=== PATIENT | female | born 1995 | race Caucasian/White ===

== ENCOUNTER 2017-06-01 20:19 | Emergency (ER) | payer OTHER ==
[2017-06-01 20:27] VITALS: BP 151/102; PULSE 114; O2SAT 96
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
[2017-06-01 21:11] LABS: Bilirubin NEGATIVE (NEGATIVE); Blood NEGATIVE Ery/ul (0-5); Collection Type CLEAN CATCH; Glucose NEGATIVE (NEGATIVE); Leukocyte Esterase TRACE (NEGATIVE)
[2017-06-01 21:12] LABS: ADD URINE CULTURE? YES (NO); Bacteria MODERATE /HPF (NEGATIVE); COMPLETE URINE MICROSCOPIC? YES; Epithelial Cells MODERATE /HPF (FEW); Mucus SLIGHT /HPF (NEGATIVE)
[2017-06-01] MEDS ORDERED: Cyclobenzaprine 10 MG PO ONE (21:56)
[2017-06-01] MEDS ORDERED: Naprosyn 500 MG PO ONE (21:57)
[2017-06-01] MEDS ORDERED: Cyclobenzaprine 10 MG ONE (22:04)
--- NOTE | 2017-06-03 14:58 | XRAY ---
Indication: Low back pain extending into both hips. No known injury. Comparison: None 3 views of the lumbar spine demonstrates 5 lumbar vertebral segments in normal alignment. No bony, articular, or soft tissue abnormalities.
== END 2017-06-01 22:22 | disposition home or self-care (01) ==
LOC: ED 20:19
DX: M54.5 Low back pain (principal); S39.012A Strain of muscle, fascia and tendon of lower back, initial encounter; X50.0XXA Overexertion from strenuous movement or load, initial encounter; Y93.E2 Activity, laundry
CPT/HCPCS: 72100; 81000; 84703; 87086; 99284; A9270-GY

== ENCOUNTER 2017-06-18 18:40 | Emergency (ER) | payer OTHER ==
[2017-06-18] MEDS ORDERED: DUONEB 0.5-3 MG/3 ml Neb IH ONE ×2 (19:07→19:16)
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
[2017-06-18 19:51] VITALS: BP 145/87; PULSE 96; O2SAT 98
--- NOTE | 2017-06-19 08:29 | XRAY ---
Indication: Fever and cough. Comparison: None PA/lateral chest demonstrates normal heart, lungs, and bony thorax.
== END 2017-06-18 19:51 | disposition home or self-care (01) ==
LOC: ED 18:40
DX: J45.909 Unspecified asthma, uncomplicated (principal)
CPT/HCPCS: 71020; 87070; 87430; 94150; 94640; 99283; 99284; A9270-GY

== ENCOUNTER 2017-06-19 01:58 | Emergency (ER) | payer OTHER ==
[2017-06-19] MEDS ORDERED: Unasyn 3GM / NaCl 100ML 3 GM/100 ML IVPB IV STA (02:25)
[2017-06-19] MEDS ORDERED: DECADRON 10MG INJ. IV ONE (02:27)
[2017-06-19] MEDS ORDERED: Tylenol #3 Tablet PO ONE (02:33)
[2017-06-19 02:44] LABS: Lactic Acid 2.5 (0.4-2.0)
[2017-06-19] MEDS ORDERED: Tylenol #3 Tablet ONE (02:48)
[2017-06-19] MEDS ORDERED: Sodium Chloride 0.9% 1000 ML 1,000 ML ONE ×2 (02:48→04:12)
[2017-06-19] MEDS ORDERED: DECADRON 10MG INJ. ONE (02:48)
[2017-06-19] MEDS ORDERED: Unasyn 3GM / NaCl 100ML 3 GM/100 ML IVPB ONE (02:49)
[2017-06-19 02:52] LABS: BASOPHIL % 0.2 % (0.0-0.4); Granulocytes % 77.7 % (36.0-66.0); Lymphocytes % 14.6 % (24.0-44.0); Mean Corpuscular Hemoglobin 25.7 pg (26-32); Mean Platelet Volume 10.7 fl (6-9.5); Monocytes % 6.5 % (0.0-12.0); Platelet Count 259 K/mm3 (150-450); Red Blood Count 4.91 M/mm3 (4.1-5.4); White Blood Count 13.5 K/mm3 (4.0-10.5)
[2017-06-19] MEDS: Sodium Chloride 0.9% 1000 ML 1,000 ML IV SCH ×2 (02:52→04:23)
[2017-06-19] MEDS ORDERED: Sodium Chloride 0.9% 1000 ML 1,000 ML IV STA (04:02)
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
[2017-06-19 05:10] LABS: Lactic Acid 2.3 (0.4-2.0)
[2017-06-19 05:11] VITALS: BP 128/86; PULSE 89
[2017-06-19 05:13] VITALS: O2SAT 99
--- NOTE | 2017-06-19 08:33 | XRAY ---
Indication: Difficulty breathing and fever. Enlarged tonsils. Multiple contiguous axial images obtained through the neck using 80 cc Isovue 370 contrast. Comparison: None [place] tonsils and adenoids appear moderately enlarged narrowing the oropharynx. Normal epiglottis. Scattered centimeter and subcentimeter cervical lymph nodes bilaterally presumed reactive. Parotid and submandibular glands are bilaterally symmetric. Thyroid gland prominent and enhances homogeneously. Major arteries and veins are normal in course and caliber. Underlying cervical spine intact. Base of the brain and lung apices are unremarkable. Mild mucosal thickening of both maxillary and ethmoid sinuses without fluid leveling. Impression: 1. Enlarged tonsils and adenoids. 2. Probable reactive cervical lymph nodes. 3. Prominent thyroid gland without focal nodule/cyst. 4. Paranasal sinus disease. Comment: Preliminary interpretation was made by [facility]. No critical discrepancy. CT DI 20.81
== END 2017-06-19 05:27 | disposition home or self-care (01) ==
LOC: ED 01:58
DX: J03.90 Acute tonsillitis, unspecified (principal)
CPT/HCPCS: 36000; 36415; 70491; 80307; 83605; 84703; 85025; 86308; 94150; 96360; 96361; 96365; 96374; 99284; J0295; J1100; A9270-GY